=== PATIENT | female | born 1995 | race Caucasian/White ===

== ENCOUNTER 2020-11-18 19:14 | Emergency (ER) | payer OTHER ==
[2020-11-18 19:59] VITALS: BP 119/76; PULSE 74; TEMP 98.3; BMI 26.5
== END 2020-11-18 21:20 | disposition home or self-care (01) ==
LOC: JER 19:14 → JERFT 19:14
DX: Z32.01 Encounter for pregnancy test, result positive (principal)
CPT/HCPCS: 84703; 99283-25